=== PATIENT | male | born 1980 | race Caucasian/White ===

== ENCOUNTER 2017-11-02 09:55 | Emergency (ER) | payer SELFPAY ==
[2017-11-02] MEDS ORDERED: PENI-24 PO (10:02)
--- NOTE | 2017-11-02 10:54 | ER Report ---
History and Physical Time Seen By MD: 10:53 Hx. of Stated Complaint: has an infected lower right molar. seen at [facility], given antibiotics. area getting worse. has a dentist appointment onwed HPI/ROS 6-year-old male has a dental abscess right molar has been seen by [facility] is on Pen-Vee K he notices swelling was worse after be on Pen-Vee K is allergic to codeine only has a dental appointment next Sunday has been established with that provider for over 2 years Allergies: Coded Allergies: codeine (Verified Adverse Reaction, Unknown, 11/02/17) vomiting Home Meds Active Scripts Clindamycin Hcl (CLINDAMYCIN HCL) 300 Mg Capsule, 300 MG PO Q6H, #40 CAPSULE Prov:MARINO ROCK 11/02/17 Reported Medications Penicillin V Potassium 500 Mg Tab (PENICILLIN V POTASSIUM 500 MG TAB) 500 Mg Tablet, 500 MG PO, TAB 11/02/17 Hx [facility] Hx Alcohol Use: No Constitutional Vital Sign - Last 24 Hours 11/02/17 09:58 Temp 98.3 Pulse 62 Resp 12 B/P (MAP) 119/85 Pulse Ox 96 O2 Delivery Room Air Physical Exam 36-year-old male alert oriented mild distress HEENT has normocephalic/ atraumatic tympanic membranes and excess cerumen in both ear canals throat is non-reddened teeth are in poor condition him does have an abscess right lower molar Medical Decision Making ED Course/Re-evaluation ED Course Patient received an IM injection Rocephin 1 g him prescription for clindamycin 304 times a day #40 no refills did give him and information about [facility] for [facility] prescriptions he states he did lose his job yesterday because he could not go to work with the pain will help him find a way to get this filled he does have an appointment Sunday with his dental provider states he will follow-up then Re-evaluation Tolerated IM Rocephin ambulatory from the ER Decision to Disposition Date: Nov 02, 2017 Decision to Disposition Time: 11:18 Depart Departure Latest Vital Signs Vital Signs Date Time Temp Pulse Resp B/P (MAP) Pulse Ox O2 Delivery O2 Flow Rate FiO2 11/02/17 09:58 98.3 62 12 119/85 96 Room Air Impression: Primary Impression: Abscess, dental Condition: Improved Disposition: HOME OR SELF-CARE Referrals: [facility] New Scripts Clindamycin Hcl (CLINDAMYCIN HCL) 300 Mg Capsule 300 MG PO Q6H, #40 CAPSULE Prov: MARINO ROCK 11/02/17 Patient Instructions: Dental Abscess (ED) Additional Instructions: Take medication as instructed, use [facility] card to help get her prescription filled, follow-up with her dental provider MARINO ROCK Nov 02, 2017 10:54
[2017-11-02] MEDS ORDERED: LIDOCAINE 1% MDV 200 MG/20 ML INJ ONE (10:55)
[2017-11-02] MEDS ORDERED: cefTRIAXone 1 GM VIAL IM ONE (10:55)
[2017-11-02] MEDS ORDERED: CLIN300C99 PO (10:57)
[2017-11-02 11:07] VITALS: BP 112/87
== END 2017-11-02 11:12 | disposition home or self-care (01) ==
LOC: ER 09:56
DX: K04.7 Periapical abscess without sinus (principal)
CPT/HCPCS: 96372; 99283; J0696; J2001